=== PATIENT | male | born 1965 | race Caucasian/White ===

== ENCOUNTER 2024-01-17 17:24 | Emergency (ER) | payer OTHER, SELFPAY ==
[2024-01-17 17:36] VITALS: BP 127/87; PULSE 87; RESP 16; TEMP 37.2; O2SAT 100
--- NOTE | 2024-01-17 17:48 | ED.SKABFB ---
HPI - Skin/Abscess/Foreign Bdy General Chief complaint: Skin/Abscess/Foreign Body Stated complaint: ABSCESS Time Seen by Provider: 01/17/24 17:48 Source: patient, RN notes reviewed and old records reviewed Mode of arrival: ambulatory Limitations: no limitations History of Present Illness HPI narrative: 58 year old male who presents to [facility] care with complaints of red Quarter sized abscess to his right posterior neck for one week duration. Patient reports that he picked the scab off of the area last night and he only noted bleeding from abscess area reports that he did squeeze area. Patient reports no known fevers and is unsure if got bit by something or what caused the boil area. he denies any acute pain to area unless palpated, tissue does have some firmness with inner center fluctuation. MD complaint: abscess/boil Onset (ago): week(s) (1) Location: neck (posterior right ) Severity scale (1-10): 3 Treatments prior to arrival: none and attempted to drain pus at home Related Data Allergies Allergy/AdvReac Type Severity Reaction Status Date / Time No Known Allergies Allergy Verified 01/17/24 17:33 Review of Systems Review of Systems: CONSTITUTIONAL: Denies fever, chills, or sweats. CARDIOVASCULAR: Denies chest pain, palpitations, or edema. RESPIRATORY: Denies cough or dyspnea. GASTROINTESTINAL: Denies abdominal pain, nausea, vomiting SKIN: Reports redness and swelling. positive purulent drainage, no vesicles, some induration and inner fluctuance of tissue, MUSCULOSKELETAL: Denies myalgia. NEUROLOGIC: Denies headache, numbness All systems reviewed & are unremarkable except as noted in HPI and below PMFSH Past Medical History Medical History (Updated 01/17/24 @ 18:17 by Sharyn Crandall NP) Fracture tibia/fibula left with hardware repair Surgical History Surgical History (Updated 01/17/24 @ 18:14 by Sharyn Crandall NP) H/O lumbosacral spine surgery with rods Hx of appendectomy Social History Social History (Updated 01/17/24 @ 19:24 by Sharyn Crandall NP) Smoking status: Current every day smoker Alcohol intake: current Alcohol use details: social Substance use type: does not use Gender identity (if verbalized by the patient): Male Comments At time of signature, agree with nursing past medical, surgical, social and family history. There is no relevant family history pertinent to the presenting complaint Exam Narrative: GENERAL: Well-appearing, well-nourished, and in no acute distress. HEAD: Normocephalic, atraumatic. EYES: PERRLA and EOMI. ENT: Nares clear, no rhinorrhea or epistaxis. Mucous membranes moist. NECK: Supple.no lymphadenopathy CHEST: Clear to auscultation. No respiratory distress. HEART: Regular rate and rhythm. No murmur heard. Normal peripheral pulses. ABDOMEN: Soft, nontender, nondistended, normal active bowel sounds. EXTREMITIES: Normal range of motion. No edema. SKIN: Warm, dry. Erythema, induration, tenderness, mild warmth size of quarter to right posterior neck some white purulent drainage noted.Induration of tissue with some inner area fluctuance NEURO: No focal deficits. Alert and oriented x3. Course Course Emergency Course: Patient is aware of diagnosis, understands and agrees to treatment plan. Anticipatory guidance given. Patient agrees to follow-up as directed and is aware of reasons to seek care at the emergency department. Portions of this record may have been created with voice recognition software Level of Care: Express Care Visit Vital Signs Vital signs: Vital Signs Temperature 37.2 C 01/17/24 17:36 Pulse Rate 87 01/17/24 17:36 Respiratory Rate 16 01/17/24 17:36 Blood Pressure 127/87 01/17/24 17:36 Pulse Oximetry 01/17/24 17:36 Temperature 37.2 C 01/17/24 17:36 Pulse Rate 87 01/17/24 17:36 Respiratory Rate 16 01/17/24 17:36 Blood Pressure 127/87 01/17/24 17:36 Pulse Oximetry 01/17/24 17:36
== END 2024-01-17 18:26 | disposition home or self-care (01) ==
PROVIDERS: Emergency Provider Registered Nurse
DX: L02.11 Cutaneous abscess of neck (principal); F17.200 Nicotine dependence, unspecified, uncomplicated
CPT/HCPCS: 10060; 87070; 87075; 87081; 87181; 87205; 99213; G0463

== ENCOUNTER 2024-08-16 15:41 | Emergency (ER) | payer OTHER, SELFPAY ==
[2024-08-16 15:50] VITALS: BP 129/84; PULSE 88; RESP 16; TEMP 37.3; O2SAT 98
--- NOTE | 2024-08-16 16:03 | ED.SKABFB ---
HPI - Skin/Abscess/Foreign Bdy General Chief complaint: Skin/Abscess/Foreign Body Stated complaint: RASH Time Seen by Provider: 08/16/24 15:50 Source: patient Mode of arrival: ambulatory Limitations: no limitations History of Present Illness HPI narrative: Good is a 59-year-old male patient presenting to the clinic today with complaints of a rash on his back and abdomen. He reports he does not know how long he has had the rash. The rash is not painful nor does the itch. Denies any fevers, chills, body aches. States his coworkers noticed a rash when he took his shirt off at work Related Data Allergies Allergy/AdvReac Type Severity Reaction Status Date / Time No Known Allergies Allergy Verified 08/16/24 15:53 Review of Systems Review of Systems: Pertinent positives per HPI. Patient denies any fever, chills, headache, visual changes, dizziness, cough, runny nose, sore throat, shortness of breath, chest pain, palpitations, nausea, vomiting, diarrhea, constipation, abdominal pain, or any urinary issues. PMFSH Past Medical History Medical History Fracture tibia/fibula left with hardware repair Surgical History Surgical History H/O lumbosacral spine surgery with rods Hx of appendectomy Social History Social History Smoking status: Current every day smoker Alcohol intake: current Alcohol use details: social Substance use type: does not use Gender identity (if verbalized by the patient): Male Comments At the time of my signature, I reviewed and agree with the nursing past medical, surgical, social, and family history. There is no relevant family history pertinent to the patient complaint. Exam Narrative: General: Well-developed, well nourished, in no apparent distress Head: Normocephalic, atraumatic. Cardio: Regular rate and rhythm, s1 and s2 normal, no murmur appreciated. Resp: Clear to auscultation bilaterally, no rhonchi, rales, wheezing or rubs. Integumentary: [place], warm, and dry, red raised, erythematous base with vesicular lesions to the left mid back, left lateral side, and left upper abdomen. Course Course Emergency Course: Portions of this record may have been created with voice recognition software. Level of Care: Express Care Visit Vital Signs Vital signs: Vital Signs Temperature 37.3 C 08/16/24 15:50 Pulse Rate 88 08/16/24 15:50 Respiratory Rate 16 08/16/24 15:50 Blood Pressure 129/84 08/16/24 15:50 Pulse Oximetry 98 08/16/24 15:50 Temperature 37.3 C 08/16/24 15:50 Pulse Rate 88 08/16/24 15:50 Respiratory Rate 16 08/16/24 15:50 Blood Pressure 129/84 08/16/24 15:50 Pulse Oximetry 98 08/16/24 15:50 Vital signs reviewed MDM - Skin/Abscess/Foreign Bdy MDM Narrative Medical decision making narrative: At the time of visit patient is resting comfortably on the exam table. Patient appears to be nontoxic. Plan: I suspect patient has herpes zoster. Prescription for acyclovir was sent to the pharmacy. Supportive measures were discussed with the patient and they voiced understanding discharge instructions and agrees to treatment plan. Return precautions reviewed Differential Diagnosis Differential diagnosis: Likely abscess of skin or subcutaneous tissue, viral exanthem, dermatophytosis, urticaria, herpes zoster, allergic reaction to drug, cellulitis, eczema, insect bites, impetigo and contact dermatitis Discharge Plan Discharge Clinical Impression: Herpes zoster Qualifiers: Herpes zoster complications: without complications Qualified Code(s): B02.9 - Zoster without complications Patient Disposition: Home, Self-Care Condition: Stable Instructions: Antibiotic Form, Shingles (ED) Additional Instructions: Keep area covered-as long as this blistered is considered contagious. Will no longer be contagious when the lesions crust over Take acyclovir as prescribed May take Tylenol/Motrin as needed for pain May apply lidocaine patches to the affected area to help alleviate any pain Follow-up with your primary care doctor in 1 week Patient Language: Malay Prescriptions: New acyclovir 800 mg tablet 800 mg PO Q4H 7 Days Qty: 42 0RF Rx Instructions: while awake; give 5 doses in 24 hours Follow-up/Referrals: PHYSICIAN,SENIOR ENGINEERING ASSOCIATE [Primary Care Provider] - Time of Disposition: 15:53 Quality NIHSS Nursing Documentation ED NIHSS nursing documentation: reviewed/agree
== END 2024-08-16 15:56 | disposition home or self-care (01) ==
PROVIDERS: Emergency Provider Nurse Practitioner Family
DX: B02.9 Zoster without complications (principal); F17.200 Nicotine dependence, unspecified, uncomplicated
CPT/HCPCS: 99213; G0463